=== PATIENT | male | born 1955 | race Caucasian/White ===

== ENCOUNTER 2021-12-01 15:44 | Emergency (ER) | payer SELFPAY ==
[~2021-12-01] VITALS: Ht 185.4 cm; Wt 95.0 kg
[2021-12-01 15:52] VITALS: BP 136/86
[2021-12-01] MEDS ORDERED: DIPH25CA83 PO (16:02)
[2021-12-01] MEDS ORDERED: PRED20TA PO (16:02)
== END 2021-12-01 16:02 | disposition home or self-care (01) ==
LOC: ER 15:45
DX: T63.001A Toxic effect of unspecified snake venom, accidental (unintentional), initial encounter (principal); Y92.89 Other specified places as the place of occurrence of the external cause
CPT/HCPCS: 99283; J7042